=== PATIENT | female | born 1980 | race Caucasian/White ===

== ENCOUNTER 2016-11-21 01:59 | Emergency (ER) | payer OTHER ==
[~2016-11-21] VITALS: Ht 167.6 cm; Wt 72.6 kg
[2016-11-21 02:14] VITALS: BP 120/85
--- NOTE | 2016-11-21 02:32 | ED UPPER/LOWER EXTREMITY COMPL ---
History of Present Illness General Chief Complaint: Upper Extremity Problem Stated Complaint: "PER PT RT HAND CARPALTUNNEL, 6WKS " Source: patient Exam Limitations: no limitations Vital Signs & Intake/Output Vital Signs & Intake/Output Vital Signs Date Time Temp Pulse Resp B/P Pulse O2 O2 Flow FiO2 Ox Delivery Rate 11/21 0214 98.6 87 18 120/85 97 Room Air Allergies Coded Allergies: MDX - PCN (penicillin) (PCN (PENICILLIN)) (05/24/11) Triage Note: PER PT WENT TO WALK IN CLINIC TWO WEEKS AGO AND WAS TOLD THAT SHE HAD TWO CYSTS ON HER RIGHT WRIST THAT IS CAUSING CARPAL TUNNEL. PT STATES THAT SHE WAS HAVING TROUBLE WITH PAIN AND CHANGES IN CIRCULATION. PT STATES TODAY SHE HAS NO FEELING TO HAND THAT STARTED 30 MINUTES AGO THAT TRAVELS UP TO ARM. PAIN IS SHARP 8/10. PT STATES THAT ARM USUALLY "JUST FEELS ASLEEP BUT NOW THERE IS ACTUAL PAIN." PT STATES THEY WANTED TO DO AN XRAY BUT COULD NOT BECAUSE PT IS 6WEEKS . Triage Nurses Notes Reviewed? yes Onset: Afternoon Duration: week(s): (2) Timing: recent history Severity: severe Pain/Injury Location: Right: Wrist, Hand. Method of Injury: PREVIOUS FALL AND FRACTURE SEVERAL MONTHS AGO : Yes Patient currently breastfeeds: No HPI: This is a 36-year-old female who presents to the ER with chief complaint of right wrist pain and numbness. She was diagnosed 2 weeks ago with carpal tunnel syndrome at a walk-in clinic and given a splint. 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 Patient is currently 6 weeks and has not been taking anything for pain. Patient states that she had fall several months ago and broke one of the hands and her wrist. She had an x-ray at that time. Past History Travel History Traveled to [place] past 21 day No Medical History Any Pertinent Medical History? 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 No Review of Systems Review of Systems Constitutional: Denies: chills, fever. EENTM: Reports: no symptoms. Respiratory: Denies: cough, short of breath. Cardiovascular: Denies: chest pain. Gastrointestinal/Abdominal: Reports: no symptoms. Genitourinary: Reports: no symptoms. Musculoskeletal: Reports: joint pain, joint swelling. Skin: Reports: no symptoms. Neurological/Psychological: Reports: no symptoms. Hematologic/Endocrine: Denies: bruising, bleeding, polyuria, polydipsia. Immunological: Denies: splenectomy. All Other Systems: Reviewed and Negative Physical Exam Physical Exam General Appearance: well developed/nourished, alert, awake, anxious, mild distress Head: atraumatic Eyes: Bilateral: PERRL, EOMI. Ears, Nose, Throat: normal pharynx, normal ENT inspection, hearing grossly normal Neck: normal inspection, supple Cardiovascular/Respiratory: regular rate/rhythm Peripheral Pulses: 2+ radial (R), 2+ apical (R) Elbow Left: normal range of motion, normal inspection Elbow Right: normal range of motion, normal inspection Hand Left: normal inspection, normal range of motion Hand Right: normal inspection, normal range of motion, positive phalen and tinel testing Neurologic/Tendon: normal sensation, normal motor functions, normal tendon functions Skin: intact, normal color, warm/dry Lymphatic: no anterior cervical lenny Progress Differential Diagnosis: CARPAL TUNNEL SYNDROME Plan of Care: TYLENOL, WRIST SPLINT, ORTHO FOLLOW UP Departure Departure Time of Disposition: 231 Disposition: HOME OR SELF CARE Condition: Stable Clinical Impression Primary Impression: Carpal tunnel syndrome of right wrist Referrals: PAO SHARMA,ELLIOTT (PCP/Family) TALITA ARCHER MD Additional Instructions: Take Tylenol as needed for pain. Continue to use the wrist splint especially at night. Follow-up with the orthopedic surgeon listed. Return to the ER for any changing or worsening symptoms. Departure Forms: Customer Survey General Discharge Information
== END 2016-11-21 02:51 ==
LOC: ERH 01:59
DX: O99.89 Other specified diseases and conditions complicating pregnancy, childbirth and the puerperium (principal); G56.01 Carpal tunnel syndrome, right upper limb; Z3A.01 Less than 8 weeks gestation of pregnancy
CPT/HCPCS: 99282

== ENCOUNTER 2017-01-20 10:08 | Emergency (ER) | payer OTHER ==
[~2017-01-20] VITALS: Ht 167.6 cm; Wt 77.6 kg
--- NOTE | 2017-01-20 10:31 | ED GI/GU/ABDOMINAL COMPLAINT ---
History of Present Illness General Chief Complaint: Nausea, Vomiting, Diarrhea Stated Complaint: NVD Source: patient Exam Limitations: no limitations Vital Signs & Intake/Output Vital Signs & Intake/Output Vital Signs Date Time Temp Pulse Resp B/P Pulse O2 O2 Flow FiO2 Ox Delivery Rate 01/20 1212 97.1 76 18 113/78 97 Room Air 01/20 1015 98.9 114 20 119/87 97 Room Air Allergies Coded Allergies: Penicillins (UNKNOWN 01/20/17) Reconcile Medications Dicyclomine Hydrochloride (Bentyl) 10 MG CAPSULE 1 CAP PO TID PRN GASTROENTERITIS Ondansetron HCl (Zofran) 4 MG TABLET 1 TAB PO Q6-8P PRN NAUSEA Triage Note: PT C/O N/V/D FEVER AND ACHEY SINCE LAST NIGHT. SON OF PT ALSO SICK WITH SIMILAR SYMPTOMS. PT STATES ABDOMINAL PAIN ALSO. LMP 01/05/17 Triage Nurses Notes Reviewed? yes ? N Is pt currently ? No Onset: Abrupt Duration: constant Timing: multiple episodes today Quality/Severity: cramping, mild Severity Numbers: 1 Radiation: no radiation Activities at Onset: eating HPI: Patient is a 36-year-old female who presents emergency room stating that last night at approximately 6 PM she ate Hand's and 1 hour later patient since has had persistent nausea vomiting and diarrhea. Patient states that the diarrhea has been loose watery in nature no blood no melena noted. Patient has been unable to tolerate anything by mouth and has had persistent vomiting nonbloody nonbilious emesis. Complains of generalized weakness and fatigue and mild generalized abdominal discomfort due to multiple episodes of vomiting. Last menstrual period was approximately 2 weeks ago. positive sick contact at home Denies any recent antibiotic use back pain dysuria hematuria vaginal bleeding vaginal discharge cough shortness of breath Past History Travel History Traveled to [place] past 21 day No Medical History Any Pertinent Medical History? 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 No Review of Systems Review of Systems Constitutional: Reports: see HPI. Denies: chills. EENTM: Reports: no symptoms. Respiratory: Reports: no symptoms. Cardiovascular: Reports: no symptoms. GI: Reports: see HPI, diarrhea, nausea, vomiting. Genitourinary: Reports: no symptoms. Musculoskeletal: Reports: no symptoms. Skin: Reports: no symptoms. Neurological/Psychological: Reports: no symptoms. Hematologic/Endocrine: Reports: no symptoms. Immunologic/Allergic: Reports: no symptoms. All Other Systems: Reviewed and Negative Physical Exam Physical Exam General Appearance: no apparent distress, comfortable Gastrointestinal: normal bowel sounds, soft, non-tender Comments: Well-developed well-nourished person in no acute distress HEENT: Normal EENT exam Neck: Supple, no lymphadenopathy, normal range of motion without pain or tenderness Back: Nontender, no CVA tenderness. Cardiovascular: Regular rate and rhythms no murmurs rubs or gallops, normal JVP Respiratory: Chest nontender. No respiratory distress.breath sounds clear to auscultation bilaterally Abdomen: Soft, nontender nondistended, no appreciable organomegaly. Normal bowel sounds. No ascites No right lower quadrant pain no peritoneal signs no rebound tenderness Extremity: No edema, no calf tenderness to palpation, normal and equal pulses. Neuro: Alert oriented x3, motor sensory normal, Skin: No appreciable rash on exposed skin, skin is warm and dry. Psych: Mood and affect is normal, memory and judgment is normal. Core Measures ACS in differential dx? No Severe Sepsis Present: No Septic Shock Present: No Progress Differential Diagnosis: AAA, AMI, appendicitis, biliary colic, bowel obstruction , colon cancer, cholecystitis, diverticulitis, ectopic , endometritis, esophageal varices, gastritis, hepatitis, hernia, hemorrhoids, ischemic bowel, inflamm bowel dis, intrauterine , kidney stone, Judith-Matthew tear, ovarian cyst, ovarian torsion, pancreatitis, PID/cervicitis, peptic ulcer, PUD/ GERD, perforated viscous, SBO, threatened AB, UTI/pyelo Plan of Care: Orders Procedure Date/time Status LIPASE 01/20 1044 Complete HUMAN BETA HCG SCREEN 01/20 1044 Complete COMPREHENSIVE METABOLIC PANEL 01/20 104 Complete CBC WITHOUT DIFFERENTIAL 01/20 104 Complete AMYLASE 01/20 1044 Complete Laboratory Tests 01/20/17 1120: Anion Gap 7, Estimated GFR > 60, BUN/Creatinine Ratio 18.9, Glucose 106 H, Calcium 8.9, Total Bilirubin 0.8, AST 20, ALT 37, Alkaline Phosphatase 57, Total Protein 6.6, Albumin 4.1, Globulin 2.5, Albumin/Globulin Ratio 1.6, Amylase 31, Lipase 41, Total Beta HCG NEGATIVE 01/20/17 1055: CBC w Diff NO MAN DIFF REQ, RBC 5.00, MCV 91.7, MCH 31.4 H, RDW 13.6, MPV 8.7, Gran % 78.6 H, Lymphocytes % 13.5 L, Monocytes % 6.9, Eosinophils % 0.5, Basophils % 0.5, Absolute Granulocytes 7.9 H, Absolute Lymphocytes 1.3, Absolute Monocytes 0.7 H, Absolute Eosinophils 0.1, Absolute Basophils 0.1, PUBS MCHC 34.3 Patient currently looks well nontoxic appearing afebrile nontender abdomen. Patient will be treated for concerns of gastroenteritis however blood work will be obtained IV fluids and anti-emetics were administered Patient had significant resolution of nausea, after blood work was unremarkable and resulted she was by mouth challenged patient could tolerate by mouth upon discharge and felt significantly improved. Due to history and present illness I suspect patient has gastroenteritis. On reexamination patient again had nontender abdomen. No concerns of appendicitis. (CHA CONWAY,DANILO) Initial ED EKG: none Departure Departure Disposition: HOME OR SELF CARE Condition: Stable Clinical Impression Primary Impression: Nausea vomiting and diarrhea Secondary Impressions: Gastroenteritis Referrals: CLAUDE SHARMA,MARIELA CEDENO MD,ELLIOTT (PCP/Family) Additional Instructions: As discussed begin a 24-hour clear liquid and bland diet to rest your bowels. Begin the prescription of Zofran for future nausea and a prescription of Bentyl for your symptoms. PRESCRIPTIONS are waiting at [facility] pharmacy. If symptoms worsen return to emergency room. If no better on Tuesday follow-up with zoogler Dr. ARCE. Departure Forms: Customer Survey General Discharge Information Prescriptions: Current Visit Scripts Dicyclomine Hydrochloride (Bentyl) 1 CAP PO TID PRN GASTROENTERITIS #9 CAP Ondansetron HCl (Zofran) 1 TAB PO Q6-8P PRN NAUSEA #15 TAB
[2017-01-20 11:03] LABS: ABSOLUTE BASOPHIL COUNT 0.1 /CUMM (0.0-0.2); ABSOLUTE EOSINOPHIL COUNT 0.1 /CUMM (0.0-0.7); ABSOLUTE GRANULOCYTE CT 7.9 /CUMM (1.4-6.5); ABSOLUTE LYMPH COUNT 1.3 /CUMM (1.2-3.4); ABSOLUTE MONOCYTE COUNT 0.7 /CUMM (0.10-0.60); BASOPHIL % 0.5 % (0.0-2.0); EOSINOPHIL % 0.5 % (0-5); GRANULOCYTE % 78.6 % (42.2-75.2); HEMATOCRIT 45.8 % (37-47); MEAN CORPUSCULAR HGB 31.4 PG (27.0-31.0); MEAN CORPUSCULAR HGB CONC 34.3 G/DL (33.0-37.0); MEAN CORPUSCULAR VOLUME 91.7 FL (81.0-99.0); MEAN PLATELET VOLUME 8.7 FL (7.4-10.4); PLATELET COUNT 232 /CUMM (130-400); RBC DISTRIBUTION WIDTH 13.6 % (11.5-14.5)
[2017-01-20 12:12] VITALS: BP 113/78
[2017-01-20] MEDS ORDERED: BENTYL10 M1 PO (12:14)
[2017-01-20] MEDS ORDERED: ZOFRAN4 M2 PO (12:14)
== END 2017-01-20 12:20 ==
LOC: ERH 10:08
PROVIDERS: Physician Assistant
DX: K52.9 Noninfective gastroenteritis and colitis, unspecified (principal)
CPT/HCPCS: 96361; 96374; J2405

== ENCOUNTER → 2017-12-26 | Day surgery (SDC) | payer OTHER ==
[~2017-12-26] VITALS: Ht 167.6 cm; Wt 77.6 kg
[~2017-12-26] MED LIST: BENTYL10 M1 PO; FLOMAX0.4 M1 PO; IBUPROFEN800 M1 PO; NORCO 5-325 TA1 EACH PO; PRENATAL MULTI1 EAC2 PO; RANITIDINE HCL150 M2 PO; ZOFRAN ODT4 M1 SL; ZOFRAN4 M2 PO
--- NOTE | 2017-12-27 14:09 | ULTRASOUND REPORT ---
EXAMINATION: INTRAOPERATIVE ULTRASOUND ABDOMEN CLINICAL INDICATION: Ultrasound guidance [id number] female patient undergoing ureteroscopy with laser lithotripsy and stent placement in OR with Dr. Argueta. COMPARISON: The scan of the abdomen and pelvis dated 10/21/2017. TECHNIQUE/FINDINGS: Ultrasound equipment was dedicated to the operating room for the performance of an intraoperative procedure. The right kidney was imaged and 6 images were acquired and are archived in PACS. Please refer to operative notes for procedural detail. IMPRESSION: Administrative dictation for intraoperative ultrasound guidance and image archiving in PACS. Please refer to operative notes for details.
--- NOTE | 2017-12-29 15:40 | Operative Report ---
Operative/Inv Procedure Report Surgery Date: 12/26/17 Name of Procedure: right ureteroscopy with stone extraction and stent placement with US guidance Pre-Operative Diagnosis: right kidney and ureteral stones Post-Operative Diagnosis: right renal stone Estimated Blood Loss: scant Surgeon/Student Counsellor: Senia Argueta MD Anesthesia: general endotracheal tube Drains: 6x24cm stent Specimens: kidney stone Complications: none Condition: stable Operative Indication: right renal colic and kidney and ureteral stones Operative/Procedure Note Note: 37yo female with a hx of right renal colic with right 2mm LP stone and 4mm right UVJ stone with hydronephrosis. She failed conservative management with flomax and hydration and wishes to have the stones removed with ureteroscopy. She was consented in the holding area after the risks, benefits and alternatives of the surgery were reviewed. This was done on the phone as well previously. All questions were answered. Patient was taken to the operating room and placed on the operating room table in the supine position. TImeout was performed. IV antibiotics were infused. ETT was placed due to severe GERD hx. She was then placed in the dorsal lithotomy position and prepped and draped in the standard sterile manner. Cystoscopy was performed and a 0,038 Sensor wire was placed with US guidance. Semi-rigid URS was then placed but no stones were visible in the ureter. No remnant of the stone was visible either eg edema or irritation of the ureteral lining. A flexible URS was then performed and the calyces were sequentially examined. The 2mm stone was found in the lower pole and removed with the zero tip basket without issue. A 6x24cm stent was placed over the wire using the cystoscope. The position was confirmed with the US. The distal portion was seen coiled in the bladder. THe bladder was emptied. She tolerated the procedure well. The stone was sent for analysis. She was taken to the recovery room in stable condition. Findings: 2mm stone in right lower pole
== END ==
LOC: STS 02:35
DX: N20.0 Calculus of kidney (principal); K21.9 Gastro-esophageal reflux disease without esophagitis; F17.200 Nicotine dependence, unspecified, uncomplicated
CPT/HCPCS: 76998; C2617; J0131; J0744; J7060